=== PATIENT | female | born 1945 | race Caucasian/White ===

== ENCOUNTER 2018-02-06 21:55 | Emergency (ER) | payer MEDICARE, OTHER ==
[~2018-02-06] VITALS: Ht 167.6 cm; Wt 90.7 kg
[2018-02-07] MEDS ORDERED: bacitracin 15gm ointment TP ONE (01:30)
[2018-02-07 01:53] VITALS: BP 151/79
[2018-02-07] MEDS ORDERED: IBUP-1984 PO (01:57)
== END 2018-02-07 01:55 | disposition home or self-care (01) ==
LOC: ER 21:55
DX: S01.01XA Laceration without foreign body of scalp, initial encounter (principal); Z79.1 Long term (current) use of non-steroidal anti-inflammatories (NSAID); W22.8XXA Striking against or struck by other objects, initial encounter; Y93.89 Activity, other specified; Y92.89 Other specified places as the place of occurrence of the external cause; Y99.8 Other external cause status
CPT/HCPCS: 12001; 99283